=== PATIENT | male | born 1960 | race Caucasian/White ===

== ENCOUNTER → 2022-02-16 10:07 | Outpatient (CLI) | payer MEDICARE, SELFPAY ==
--- NOTE | ~2022-02-16 | MR_ITS ---
EXAMINATION: MR knee RT wo con DATE: 02/16/2022 10:49 INDICATION: Right knee pain. TECHNIQUE: Magnetic resonance imaging (MRI) of the right knee was performed without intravenous contr ast. Sequences included axial PD-weighted FS FSE, coronal PD-weighted FSE and PD-weighted FS FSE, sag ittal PD-weighted FSE, and sagittal T2-weighted FS FSE. COMPARISON: None. FINDINGS: Medial compartment: Posterior horn of medial meniscus is small. There is partial-thickness cartilage loss of femoral cond yle, deep at the central and posterior articular surface. There is partial-thickness cartilage loss o f tibial condyle, deep at the medial articular surface. Osteophytes are noted. Lateral compartment: There is blunting of free edge of body and posterior horn of lateral meniscus. There is shallow parti al-thickness cartilage loss of tibial condyle. There is shallow partial-thickness cartilage loss of f emoral condyle. There is deep partial thickness cartilage loss of femoral condyle adjacent to posteri or horn of lateral meniscus. Patellofemoral compartment: There is full-thickness cartilage loss of patellar medial facet with intra-articular osteophyte. Ther e is full-thickness cartilage loss of lateral, central, and medial trochlea distally. Osteophytes are noted. Ligaments and tendons: There is thickening of anterior cruciate ligament, likely mucoid degeneration. Posterior cruciate lig ament is normal. Medial collateral ligament is normal. There are changes of prior sprain of fibular c ollateral ligament characterized by thickening and increased signal intensity proximally. There is mi ld patellar tendinopathy. Fluid: There is a small knee joint effusion. There is a small Grimes's cyst. IMPRESSION: 1. Severe chondrosis of patellofemoral compartment and moderate chondrosis of medial and lateral comp artments. 2. Small posterior horn of medial meniscus and blunting of free edge of lateral meniscus, which may b e changes of partial meniscectomies or meniscal tears. 3. Small knee joint effusion. 4. Small Grimes's cyst. Reviewed, dictated and finalized at location A. BOILER IMPRESSION: 1. Severe chondrosis of patellofemoral compartment and moderate chondrosis of m edial and lateral compartments. 2. Small posterior horn of medial meniscus and blunting of free edge of lateral meniscus, which may be changes of partial meniscectomies or meniscal tears. 3. Small knee joint effusion. 4. Small Grimes's cyst.
== END ==
PROVIDERS: PCP Family Medicine Sports Medicine
DX: M25.561 Pain in right knee (principal); M22.2X1 Patellofemoral disorders, right knee; M25.461 Effusion, right knee; M71.21 Synovial cyst of popliteal space [Baker], right knee
CPT/HCPCS: 73721

== ENCOUNTER → 2023-01-19 12:07 | Outpatient (CLI) | payer MEDICARE, SELFPAY ==
--- NOTE | ~2023-01-19 | MR_ITS ---
MRI of the lumbar spine Clinical History: Back pain Technique: Axial T2-weighted images, and sagittal T1-weighted, T2-weighted, and and T2 fat-sat images were acquired. Findings: There is no acute fracture the lumbar spine. There is 2 mm retrolisthesis of L2 over L3. Th ere is 2 mm retrolisthesis of L4 over L5. No suspicious bone marrow signal abnormality seen. At L1-L2, there is advanced degenerative disc narrowing. There is mild disc bulge and moderate facet arthropathy. No central canal stenosis. There is moderate left neural foraminal narrowing. Right neur al foramen preserved. At L2-L3, there is moderate degenerative disc 9. There is diffuse disc bulge with mild to moderate fa cet arthropathy, and mild central canal stenosis. There is moderate to severe left neural foraminal n arrowing, and mild right neural foraminal narrowing. At L3-L4, there is disc bulge and severe facet arthropathy. There is mild central canal stenosis. Aditya ateral neural foramina are preserved. At L4-L5, there is diffuse disc bulge and severe facet arthropathy, with minimal central canal stenos is. There is severe bilateral neural foraminal narrowing, right worse than left. At L5-S1, there is disc bulge and minimal facet joint degenerative change. No central canal stenosis. There is moderate to severe bilateral neural foraminal narrowing. Paravertebral soft tissues are unremarkable. Impression: Moderate to severe degenerative spondylosis, as detailed above. 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 Reviewed, dictated and finalized at [facility]. Impression: Moderate to severe degenerative spondylosis, as detailed above. 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
== END ==
PROVIDERS: PCP Family Medicine Sports Medicine; Visit Provider Family Medicine Sports Medicine
DX: M54.41 Lumbago with sciatica, right side (principal); M43.06 Spondylolysis, lumbar region; G89.29 Other chronic pain
CPT/HCPCS: 72148

== ENCOUNTER 2023-09-27 07:58 | Outpatient (CLI) | payer MEDICARE, SELFPAY ==
--- NOTE | ~2023-09-27 | CT_ITS ---
EXAMINATION: CT abdomen pelvis w con DATE: 09/27/2023 08:37 INDICATION: Left lower quadrant abdominal pain. TECHNIQUE: Computed tomography (CT) of the abdomen and pelvis was performed with 100 mL Omnipaque 350 intravenous contrast. Automated exposure control and iterative reconstruction technique were employe d. The dose-length product was 814.12 mGy-cm. COMPARISON: None. FINDINGS: The visualized portions of the lung bases demonstrate mild atelectasis. No pleural effusion . The heart size is normal. No pericardial effusion. The liver, gallbladder, spleen, pancreas, and ad renal glands are normal. There are cysts in right kidney measuring up to 13 mm. Left kidney is in the pelvis. There are cysts in left kidney measuring up to 5 mm. There is a left inguinal hernia contain ing fat. There are no dilated loops of bowel. The appendix is not visualized. Aortic atherosclerosis is noted. There are no pathologically enlarged lymph nodes. There is no ascites. There is severe thor acic and lumbar spondylosis. IMPRESSION: 1. Left inguinal hernia containing fat. Reviewed, dictated and finalized at location A.
[2023-09-27 08:25] LABS: Estimated Glomerular Filt Rate > 60
== END 2023-09-27 07:59 ==
PROVIDERS: PCP Family Medicine Sports Medicine; Visit Provider Family Medicine Sports Medicine
DX: R10.32 Left lower quadrant pain (principal); K40.90 Unilateral inguinal hernia, without obstruction or gangrene, not specified as recurrent
CPT/HCPCS: 74177; Q9967